=== PATIENT | male | born 1975 | race African-American/Black ===

== ENCOUNTER 2023-04-02 16:15 | Observation (INO) | payer SELFPAY ==
[2023-04-02] MEDS ORDERED: Furosemide 40 MG (4 mL) VIAL ONE (17:05)
[2023-04-02 17:11] LABS: #Basophils 0.1 thou/uL (0.0-0.2); #Eosinphils 0.1 thou/uL (0.0-0.7); %Basophils 0.5 % (0.0-1.0); %Eosinophils 0.5 % (0.0-10.0); %Lymphocytes 15.7 % (21.0-51.0); %Monocytes 7.2 % (0.0-10.0); %Neutrophils 75.3 % (42.0-75.0); Hematocrit 44.7 % (42.0-52.0); Hemoglobin 15.1 g/dL (14.0-18.0); Mean Corpuscular HGB CONC 33.8 g/dL (32.0-36.0); Mean Corpuscular Hemoglobin 30.5 pg (27.0-31.0); Mean Corpuscular Volume 90.3 fl (78.0-98.0); Mean Platelet Volume 10.3 fL (7.4-10.4); Platelet Count 262 10x3/uL (130-400); RBC Distribution Width 14.9 % (11.5-14.5); Red Blood Cell (RBC) Count 4.95 mill/uL (4.70-6.10); White Blood Cell (WBC) Count 13.3 10x3/uL (4.8-10.8)
[2023-04-02 17:37] LABS: ALT (SGPT) 43 U/L (8-55); AST (SGOT) 54 U/L (5-34); Albumin 3.7 g/dL (3.5-5.0); Alkaline Phosphatase 58 U/L (40-110); Anion Gap 16 mmol/L (10-20); BUN (Urea Nitrogen) 28 mg/dL (8.9-20.6); Bilirubin, Total 1.3 mg/dL (0.2-1.2); Calc. Creatinine Clearance 0 mL/min (70-130); Calcium 9.5 mg/dL (7.8-10.44); Carbon Dioxide 19 mmol/L (22-29); Chloride 101 mmol/L (98-107); Estimated GFR 58; Globulin 2.6 g/dL (2.4-3.5); Glucose 101 mg/dL (70-105); Potassium 5.3 mmol/L (3.5-5.1); Protein, Total 6.3 g/dL (6.0-8.3); Sodium 131 mmol/L (136-145)
[2023-04-02 17:41] LABS: Troponin I 0.047 ng/mL (< 0.028)
[2023-04-02] MEDS ORDERED: Calcium Carbonate 500 MG ChewTAB PO PRN (20:43)
[2023-04-02] MEDS ORDERED: Glucagon 1 MG/ML KIT IM PRN (20:43)
[2023-04-02] MEDS ORDERED: HumaLOG 300 UNITS/3 ML VIAL SC PRN ×2 (20:43)
[2023-04-02] MEDS ORDERED: Dextrose 5% in Water 1,000 ML IV PRN (20:43)
[2023-04-02] MEDS ORDERED: Senokot S 8.6-50 MG TAB PO PRN (20:43)
[2023-04-02] MEDS ORDERED: Ondansetron ODT 4 MG TAB PO PRN (20:43)
[2023-04-02] MEDS ORDERED: Nicotine 21 MG PATCH TD PRN (20:43)
[2023-04-02] MEDS ORDERED: Dextrose 50% Abboject 50 ML SYRINGE SLOW IVP PRN (20:43)
[2023-04-02] MEDS ORDERED: Lorazepam 1 MG TAB PO PRN (20:43)
[2023-04-02] MEDS ORDERED: Electrolyte Replacement Protocol 1 EACH FS SCH (20:45)
[2023-04-02] MEDS ORDERED: Ondansetron ODT 4 MG TAB SL PRN (20:45)
[2023-04-02] MEDS ORDERED: Acetaminophen 325 MG TAB PO PRN (20:45)
[2023-04-02] MEDS ORDERED: Ondansetron PF 4 MG/2 ML Vial IVP PRN (20:45)
[2023-04-02] MEDS ORDERED: Ipratropium/Albuterol 3 ML NEB NEB PRN (20:47)
[2023-04-02] MEDS ORDERED: Albuterol 200 PUFF (6.7GM INHALER) INH PRN (20:48)
[2023-04-02 21:15] LABS: Troponin I 0.051 ng/mL (< 0.028)
[2023-04-02 21:36] LABS: Magnesium 2.1 mg/dL (1.6-2.6)
[2023-04-02] MEDS: Thiamine HCl 200 MG/2 ML VIAL SLOW IVP SCH (22:07)
[2023-04-02 23:16] VITALS: BMI 35.6
[2023-04-02 23:59] LABS: Troponin I 0.039 ng/mL (< 0.028)
[2023-04-03 04:09] VITALS: TEMP 97.7
[2023-04-03 05:53] LABS: #Basophils 0.1 thou/uL (0.0-0.2); #Eosinphils 0.1 thou/uL (0.0-0.7); #Monocytes 0.8 thou/uL (0.11-0.59); #Neutrophils 7.6 thou/uL (1.40-6.50); %Basophils 0.4 % (0.0-1.0); %Eosinophils 0.6 % (0.0-10.0); %Lymphocytes 23.6 % (21.0-51.0); %Monocytes 6.9 % (0.0-10.0); Hemoglobin 13.4 g/dL (14.0-18.0); Mean Corpuscular HGB CONC 34.4 g/dL (32.0-36.0); Mean Corpuscular Hemoglobin 29.1 pg (27.0-31.0); Mean Platelet Volume 10.6 fL (7.4-10.4); Platelet Count 238 10x3/uL (130-400); RBC Distribution Width 14.5 % (11.5-14.5); White Blood Cell (WBC) Count 11.2 10x3/uL (4.8-10.8)
[2023-04-03 05:59] LABS: ALT (SGPT) 53 U/L (8-55); AST (SGOT) 62 U/L (5-34); Albumin 3.3 g/dL (3.5-5.0); Alkaline Phosphatase 66 U/L (40-110); Anion Gap 12 mmol/L (10-20); BUN (Urea Nitrogen) 29 mg/dL (8.9-20.6); Bilirubin, Total 0.6 mg/dL (0.2-1.2); Calc. Creatinine Clearance 111 mL/min (70-130); Calcium 8.8 mg/dL (7.8-10.44); Carbon Dioxide 27 mmol/L (22-29); Chloride 101 mmol/L (98-107); Estimated GFR 61; Globulin 2.7 g/dL (2.4-3.5); Glucose 129 mg/dL (70-105); Potassium 3.9 mmol/L (3.5-5.1); Sodium 136 mmol/L (136-145)
[2023-04-03] MEDS: Furosemide 40 MG (4 mL) VIAL SLOW IVP SCH (06:02)
[2023-04-03 06:33] LABS: Mean Corpuscular Volume 84.8 fl (78.0-98.0)
[2023-04-03 08:59] VITALS: BP 113/78
[2023-04-03] MEDS: Enoxaparin 40 MG (0.4 mL) SYRINGE SC SCH (09:27)
[2023-04-03] MEDS: Multivit, Therapeutic 1 TAB PO SCH (09:27)
[2023-04-03] MEDS: Aspirin 81 mg Enteric Coated Tablet PO SCH (09:27)
[2023-04-03] MEDS: Folic Acid 1 MG TAB PO SCH (09:27)
[2023-04-03] MEDS ORDERED: Lorazepam 1 MG TAB PO PRN (20:43)
[2023-04-04] MEDS ORDERED: Lorazepam 1 MG TAB PO PRN (20:43)
[2023-04-05] MEDS ORDERED: Lorazepam 0.5 MG TAB PO PRN (20:43)
[2023-04-05] MEDS ORDERED: Thiamine 100 MG TAB PO SCH (21:00)
== END 2023-04-03 12:11 | disposition home or self-care (01) ==
LOC: ERS 16:15 → 2SW 21:06
PROVIDERS: ADMIT Student in an Organized Health Care Education/Training Program; ATTEND Family Medicine
DX: I11.0 Hypertensive heart disease with heart failure (principal); I50.9 Heart failure, unspecified; N17.9 Acute kidney failure, unspecified; E11.9 Type 2 diabetes mellitus without complications; E87.5 Hyperkalemia; J45.909 Unspecified asthma, uncomplicated; F17.210 Nicotine dependence, cigarettes, uncomplicated; F41.9 Anxiety disorder, unspecified; Z98.890 Other specified postprocedural states; Z79.899 Other long term (current) drug therapy; Z79.82 Long term (current) use of aspirin
CPT/HCPCS: 36415; 36416; 71045; 80053; 83735; 83880; 84484; 85025; 93005; 96372; 96374; 96375; 96376; G0378; J1650; J1940; J3411